=== PATIENT | female | born 1985 | race Two or more races ===

== ENCOUNTER → 2016-07-23 | Outpatient (REF) | payer OTHER ==
[~2016-07-23] MED LIST: ACET50TA PO; ADVI200C5 PO; ASPI1TAB PO; AUGM500T34 PO; COLA100C3 PO; FERR325T3 PO; FISH1000 PO; LABE10TAB PO; MOM30SS PO; PRENTAB16 PO; SALI0.653; UNIS25TA2 PO
== END ==
LOC: M SFHCLERA 14:11
PROVIDERS: ATTEND Nurse Practitioner Family
DX: L02.91 Cutaneous abscess, unspecified (principal)
CPT/HCPCS: 87070; 87077; G0463

== ENCOUNTER → 2017-01-07 | Outpatient (REF) | payer OTHER ==
[~2017-01-07] MED LIST changes: -COLA100C3 PO; +COLA100C5 PO; +SALI0.6523; -SALI0.653
== END ==
LOC: M SFHCLUC 19:02
PROVIDERS: ATTEND Nurse Practitioner Family
DX: R51 Headache (principal); R11.10 Vomiting, unspecified